=== PATIENT | male | born 1975 | race Caucasian/White ===

== ENCOUNTER 2017-01-08 06:00 | Emergency (ER) | payer SELFPAY ==
[~2017-01-08] VITALS: Ht 188 cm; Wt 117.0 kg
[2017-01-08 06:04] VITALS: BP 141/78
== END 2017-01-08 06:48 | disposition home or self-care (01) ==
LOC: ED 06:42
DX: Z02.89 Encounter for other administrative examinations (principal)
CPT/HCPCS: 99283